=== PATIENT | female | born 1995 | race Caucasian/White ===

== ENCOUNTER → 2021-05-26 | Outpatient (CLI) | payer BC ==
[2021-05-26 12:49] LABS: HEMOGLOBIN 13.4 gm/dl (12.3-15.3); RED BLOOD COUNT 4.84 M/UL (4.00-5.10); WHITE BLOOD COUNT 5.9 K/UL (4.5-11.0)
[2021-05-26 13:11] LABS: BUN/CREATININE RATIO 9 (0-10)
[2021-05-28 09:13] LABS: DRVVT 30.5 sec (0.0-47.0); LUPUS REFLEX INTERPRETATION Comment: (.); PT 10.1 sec (9.1-12.0); PT 1:1NP 10.1 sec (9.1-12.0); PTT-LA 32.1 sec (0.0-51.9); THROMBIN TIME 17.6 sec (0.0-23.0)
== END ==
LOC: LAB 11:50
PROVIDERS: Internal Medicine
DX: R31.9 Hematuria, unspecified (principal); M25.50 Pain in unspecified joint; R58 Hemorrhage, not elsewhere classified; I73.00 Raynaud's syndrome without gangrene; R76.8 Other specified abnormal immunological findings in serum
CPT/HCPCS: 36415; 80053; 81001; 82570; 84156; 85025; 85611